=== PATIENT | female | born 1970 | race Caucasian/White ===

== ENCOUNTER 2017-02-26 14:07 | Emergency (ER) | payer MEDICAID ==
[~2017-02-26] VITALS: Ht 149.9 cm; Wt 59.0 kg
[2017-02-26] MEDS ORDERED: ACETAMINOPHEN WITH CODEINE 300/30MG TABLET PO ONE (19:30)
[2017-02-26 19:39] LABS: CLARITY URINE CLEAR (CLEAR); COLOR URINE DARK YELLOW (YELLOW); KETONES URINE NEGATIVE (NEGATIVE); LEUKOCYTE ESTERASE URINE NEGATIVE (NEGATIVE); NITRITE URINE NEGATIVE (NEGATIVE); OCCULT BLOOD URINE NEGATIVE (NEGATIVE); PH URINE 5.5 (4.5-8.0); PROTEIN URINE TRACE (NEGATIVE)
[2017-02-26 21:00] VITALS: BP 110/65
== END 2017-02-26 21:00 | disposition home or self-care (01) ==
LOC: ER 14:07
DX: R10.11 Right upper quadrant pain (principal); M54.9 Dorsalgia, unspecified; Z88.0 Allergy status to penicillin; F17.210 Nicotine dependence, cigarettes, uncomplicated; Z90.710 Acquired absence of both cervix and uterus; F43.10 Post-traumatic stress disorder, unspecified; Z87.440 Personal history of urinary (tract) infections
CPT/HCPCS: 81001; 81025; 99283

== ENCOUNTER 2017-03-13 20:15 | Emergency (ER) | payer MEDICAID ==
[~2017-03-13] VITALS: Ht 149.9 cm; Wt 59.0 kg
[2017-03-14] MEDS: BACITRACIN ZINC OINT UDPKT TOP ONE (03:45)
[2017-03-14] MEDS: LIDOCAINE HCL 1% 20ML VIAL (Pyxis) INJ MC ONE (03:45)
[2017-03-14] MEDS: TETANUS, DIPHTHERIA, PERTUSSIS VAC/PF 0.5ML (>7YR OLD) IM ONE (03:45)
[2017-03-14 03:48] VITALS: BP 112/51
[2017-03-14] MEDS: IBUPROFEN 600MG TABLET PO ONE (03:48)
== END 2017-03-14 05:54 | disposition home or self-care (01) ==
LOC: ER 20:27
DX: S61.212A Laceration without foreign body of right middle finger without damage to nail, initial encounter (principal); K21.9 Gastro-esophageal reflux disease without esophagitis; J45.909 Unspecified asthma, uncomplicated; Z88.0 Allergy status to penicillin; W45.8XXA Other foreign body or object entering through skin, initial encounter; Y93.G1 Activity, food preparation and clean up; Y92.89 Other specified places as the place of occurrence of the external cause; Y99.8 Other external cause status; F17.200 Nicotine dependence, unspecified, uncomplicated
CPT/HCPCS: 12001; 99283; J3490; X7700; Z7610; 90715

== ENCOUNTER 2017-03-31 17:25 | Emergency (ER) | payer MEDICAID ==
[~2017-03-31] VITALS: Ht 144.8 cm; Wt 40.0 kg
[2017-03-31 17:27] VITALS: BP 127/59
== END 2017-04-01 | disposition left against medical advice (07) ==
LOC: ER 17:44
DX: Z53.21 Procedure and treatment not carried out due to patient leaving prior to being seen by health care provider (principal)

== ENCOUNTER 2017-05-03 21:54 | Emergency (ER) | payer MEDICAID | END 2017-05-04 | disposition left against medical advice (07) | LOC: ER 23:59 | DX: Z53.21 Procedure and treatment not carried out due to patient leaving prior to being seen by health care provider (principal) ==

== ENCOUNTER 2017-07-22 08:33 | Emergency (ER) | payer MEDICAID ==
[~2017-07-22] VITALS: Ht 149.9 cm; Wt 65.0 kg
[2017-07-22 11:45] VITALS: BP 96/58
[2017-07-22] MEDS ORDERED: ACETAMINOPHEN 325MG TABLET PO ONE (12:15)
[2017-07-22] MEDS ORDERED: LORAZEPAM 0.5MG TABLET PO ONE (12:15)
== END 2017-07-22 12:50 | disposition left against medical advice (07) ==
LOC: ER 08:46
DX: S09.8XXA Other specified injuries of head, initial encounter (principal); M54.5 Low back pain; M19.90 Unspecified osteoarthritis, unspecified site; K21.9 Gastro-esophageal reflux disease without esophagitis; J45.909 Unspecified asthma, uncomplicated; F17.210 Nicotine dependence, cigarettes, uncomplicated; Z98.51 Tubal ligation status; Z88.0 Allergy status to penicillin; W18.2XXA Fall in (into) shower or empty bathtub, initial encounter; Y93.E1 Activity, personal bathing and showering; Y92.012 Bathroom of single-family (private) house as the place of occurrence of the external cause
CPT/HCPCS: 81025; 99283; J7030; Z7610

== ENCOUNTER 2017-10-01 21:09 | Emergency (ER) | payer MEDICAID, OTHER ==
[~2017-10-01] VITALS: Ht 149.9 cm; Wt 64.0 kg
[2017-10-01 22:23] VITALS: BP_SYST 59
[2017-10-02] MEDS ORDERED: TERBINAFINE HCL 250MG TABLET PO SCH (04:30)
[2017-10-02] MEDS ORDERED: KETOROLAC 60MG/2ML VIAL IM ONE (04:30)
== END 2017-10-02 06:30 | disposition home or self-care (01) ==
LOC: ER 21:09
DX: M54.5 Low back pain (principal); G89.29 Other chronic pain; M79.671 Pain in right foot; B35.1 Tinea unguium; Z59.0 Homelessness; J45.909 Unspecified asthma, uncomplicated; K21.9 Gastro-esophageal reflux disease without esophagitis; Z88.0 Allergy status to penicillin
CPT/HCPCS: 96372; 99283; J1885

== ENCOUNTER 2017-10-22 14:59 | Emergency (ER) | payer MEDICAID ==
[~2017-10-22] VITALS: Ht 149.9 cm; Wt 45.0 kg
[2017-10-22] MEDS ORDERED: FAMOTIDINE 20MG/2ML VIAL IV ONE (20:00)
[2017-10-22] MEDS ORDERED: ONDANSETRON HCL 4MG/2ML VIAL IV ONE (20:00)
[2017-10-22] MEDS ORDERED: SODIUM CHLORIDE 0.9% 1,000 ML IV ONE (20:00)
[2017-10-22] MEDS ORDERED: IPRATROPIUM/ALBUTEROL 0.5-3(2.5)MG/3ML NEB HHN ONE (20:00)
[2017-10-22 20:39] LABS: CLARITY URINE CLOUDY (CLEAR); COLOR URINE YELLOW (YELLOW); KETONES URINE TRACE (NEGATIVE); LEUKOCYTE ESTERASE URINE NEGATIVE (NEGATIVE); NITRITE URINE NEGATIVE (NEGATIVE); OCCULT BLOOD URINE NEGATIVE (NEGATIVE); PROTEIN URINE NEGATIVE (NEGATIVE); SPECIFIC GRAVITY URINE 1.032 (1.005-1.030); UROBILINOGEN URINE 0.2 E.U./dL (0.2-1.0)
[2017-10-22 20:40] LABS: BASOPHILS % 0.9 % (0.0-2.0); EOSINOPHILS % 1.6 % (0.0-5.0); HEMATOCRIT. 39.5 % (36.0-48.0); HEMOGLOBIN. 13.7 g/dL (12.0-16.0); MEAN CORPUSCULAR VOLUME 95.1 fL (81.0-99.0); MONOCYTES % 13.4 % (2.0-8.0); NEUTROPHILS % 60.1 % (40.0-76.0); PLATELET 198 x1000/uL (130-400); RED BLOOD CELL COUNT 4.16 mill/uL (4.2-5.4); RED CELL DISTRIBUTION WIDTH 13.5 % (11.6-14.6)
[2017-10-22 20:45] LABS: PARTIAL THROMBOPLASTIN TIME 27.5 sec (23.4-31.0)
[2017-10-22 20:47] LABS: CHLORIDE 106 mEq/L (98-107)
[2017-10-22 21:40] VITALS: BP 108/70
== END 2017-10-22 22:00 | disposition home or self-care (01) ==
LOC: ER 15:31
DX: J06.9 Acute upper respiratory infection, unspecified (principal); K21.9 Gastro-esophageal reflux disease without esophagitis; J45.909 Unspecified asthma, uncomplicated; M19.90 Unspecified osteoarthritis, unspecified site; Z88.0 Allergy status to penicillin; Z98.51 Tubal ligation status
CPT/HCPCS: 36415; 71045; 80053; 81003; 81025; 85025; 85610; 85730; 94640; 96361; 96374; 96375; 99285; J2405; J3490; J7030; J7620; Z7610

== ENCOUNTER 2017-10-22 22:35 | Emergency (ER) | payer MEDICAID ==
[~2017-10-22] VITALS: Ht 149.9 cm; Wt 50.0 kg
[2017-10-23 07:12] LABS: BASOPHILS % 0.8 % (0.0-2.0); EOSINOPHILS % 1.4 % (0.0-5.0); HEMATOCRIT. 38.4 % (36.0-48.0); HEMOGLOBIN. 13.1 g/dL (12.0-16.0); LYMPHOCYTES % 24.3 % (20.0-50.0); MEAN CORPUSCULAR HEMOGLOBIN 32.7 pg (28.0-32.0); MEAN CORPUSCULAR VOLUME 95.7 fL (81.0-99.0); MEAN PLATELET VOLUME 7.6 fl (7.4-10.4); MONOCYTES % 14.9 % (2.0-8.0); NEUTROPHILS % 58.6 % (40.0-76.0); PLATELET 195 x1000/uL (130-400); RED BLOOD CELL COUNT 4.01 mill/uL (4.2-5.4); RED CELL DISTRIBUTION WIDTH 13.5 % (11.6-14.6)
[2017-10-23 07:20] LABS: CHLORIDE 108 mEq/L (98-107); ETHANOL BLOOD < 10 mg/dL
[2017-10-23 07:25] LABS: HCG SCREEN NEGATIVE
[2017-10-23 09:45] VITALS: BP 108/61
== END 2017-10-23 10:51 | disposition home or self-care (01) ==
LOC: ER 22:44
DX: F32.9 Major depressive disorder, single episode, unspecified (principal); F43.10 Post-traumatic stress disorder, unspecified; M19.90 Unspecified osteoarthritis, unspecified site; K21.9 Gastro-esophageal reflux disease without esophagitis; J45.909 Unspecified asthma, uncomplicated; R00.1 Bradycardia, unspecified; Z88.0 Allergy status to penicillin
CPT/HCPCS: 36415; 80053; 84703; 85025; 93005; 99285; G0482